=== PATIENT | male | born 1985 | race Caucasian/White ===

== ENCOUNTER 2020-12-15 16:54 | Emergency (ER) | payer BC, MEDICAID, SELFPAY ==
--- NOTE | ~2020-12-15 | XR_ITS ---
EXAMINATION: XR FACIAL BONES CLINICAL INFORMATION: Dog bite COMPARISON: None TECHNIQUE: 5 views of the facial bones were obtained. FINDINGS: No fracture. No focal bone lesion. Normal aeration of the paranasal sinuses. Mandible and TMJ joints are normal. XR/XR facial bones min 3V IMPRESSION: Normal facial bones.
[2020-12-15 17:21] VITALS: BP 122/88; PULSE 76; RESP 18; TEMP 36.8; O2SAT 99; BMI 29.0
[2020-12-15 17:29] VITALS: BP 129/90; PULSE 70; RESP 14; TEMP 36.8; O2SAT 97
--- NOTE | 2020-12-15 17:42 | ED_ITS ---
HPI - Animal Bite General Chief Complaint: Animal Bite Stated Complaint: DOG BITE Time Seen by Provider: 12/15/20 17:30 Source: patient Mode of arrival: ambulatory Limitations: no limitations History of Present Illness HPI narrative: 35-year-old male presenting to the ED with dog bite to his right cheek and right lip that occurred prior to arrival from his own dog. He reports his dog has been very weak and dying over the past week and he had him out in the yd for at least an hour and the dog could not go back up the stairs therefore he tried to help him up the stairs and he might of grabbed him the wrong way or her the dog without attempting to hurt the dog and the dog bit him. He reports the dog was acting his normal self other than being very weak over the past week. He does not believe his dog had rabies and he believes that his dog was up-to-date with all immunizations. He reports he is not up-to-date and the tetanus. He reports his dog was put down not because of the bite but because he was very weak over the past week and he was already having this plan/scheduled to put him down. He denies any other symptoms complaints or concerns at this time. MD complaint: animal bite Onset (ago): hour(s) (Prior to arrival) Animal: dog Description of animal: household pet, immunizations UTD and appeared well Mechanism: bite Location: face (Right cheek near the ear and right corner of lip ) Pain description: dull and constant Context: other (He was trying to help him up the steps due to he has been very weak) Associated symptoms: none Treatments prior to arrival: irrigation Related Data Patient tetanus UTD: No Previous Rx's Medication Instructions Recorded amoxicillin 875 mg-potassium 1 tab PO BID 14 Days #28 tab 12/15/20 clavulanate 125 mg tablet (Augmentin) ibuprofen 800 mg tablet 800 mg PO Q8H PRN #14 tab 12/15/20 oxycodone-acetaminophen 5 mg-325 1 tab PO Q6H PRN #10 tab 12/15/20 mg tablet (Percocet) Allergies Allergy/AdvReac Type Severity Reaction Status Date / Time No Known Allergies Allergy Verified 12/15/20 17:21 Review of Systems Review of Systems: Constitutional : No Fever, No Chills, Cardiovascular : No Chest Pain, No SOB Respiratory : No Dyspnea Gastrointestinal : No abdominal pain Musculoskeletal : No Joint Swelling Skin : positive skin laceration, No Foreign bodies, No rash, No surrounding erythema Neuro : No Weakness, No Numbness/tingling Psych : No SI/HI/thoughts of self injury Yes all other systems are reviewed and are negative [facility] Past Medical History Attestation statement: The following information was validated with the patient. Medical History Patient denies having any allergies Patient denies medical problems Social History Social History Alcohol intake: never Smoked in Last 30 Days: No Use of substances other than those prescribed or required for medical reasons: No Advance Directives: No Advance Directives Information Provided: No Physical Exam Vital Signs: Vital Signs: Last Vital Signs Temp 98.3 F 12/15/20 17:29 Pulse 70 12/15/20 17:29 Resp 14 12/15/20 17:29 BP 129/90 H 12/15/20 17:29 Pulse Ox 97 12/15/20 17:29 Body Mass Index 29.0 vital signs have been reviewed as normal and appeared to be correct. Blood pressure normal Heart rate normal. Respiration rate normal. Temperature normal. Oxygen saturation normal. Appearance: Alert. Oriented X3. No acute distress. Head: Normal external exam. Normocephalic. Atraumatic. Eyes: PERRLA. EOMI. Conjunctiva and sclera normal. Eyelids normal. ENT: Pharynx normal. Uvula midline. Moist mucous membranes. Neck: Normal inspection. Neck supple. FROM. CVS: Normal heart rate and rhythm. Respiratory: No respiratory distress. Painless inspiration. Skin: Skin warm and dry. Normal skin color. Normal skin turgor. To the right cheek patient has 3 intermediate 1 cm lacerations noted no active bleeding or foreign bodies noted. To the right oral commissure/lip patient has the 0.5 intermediate circular laceration no active bleeding or foreign bodies noted. No additional rashes/lesions/lacerations noted. Extremities: Extremities exhibit normal range of motion. Extremities nontender. Neuro: Oriented X 3. No motor deficit. No sensory deficit. Reflexes normal. Normal steady gait. No focal neuro deficits noted. Course Course Course Narrative: 35-year-old male presenting to the ED with dog bite to his right cheek and right lip that occurred prior to arrival from his own dog. He reports his dog has been very weak and dying over the past week and he had him out in the yd for at least an hour and the dog could not go back up the stairs therefore he tried to help him up the stairs and he might of grabbed him the wrong way or her the dog without attempting to hurt the dog and the dog bit him. He reports the dog was acting his normal self other than being very weak over the past week. He does not believe his dog had rabies and he believes that his dog was up-to-date with all immunizations. He reports he is not up-to-date and the tetanus. He reports his dog was put down not because of the bite but because he was very weak over the past week and he was already having this plan/scheduled to put him down. He denies any other symptoms complaints or concerns at this time. On exam patient has 2 intermediate laceration to the right cheek and 1 interm ediate laceration to the right oral commissure no foreign bodies or active bleeding noted. Patient not up-to-date on tetanus therefore ordered at this time. Will also order Augmentin and start him on Augmentin b.i.d. for 14 days. Patient is now status post laceration repair with 3 loose sutures placed to the bigger wound to the right outer cheek, then 1 suture loose suture to the middle laceration then 2 sutures to the 3rd laceration and 1 suture to the lip all loose and patient tolerated procedure well no complications. Will DC home with symptomatic treatment instructions return if any new or worsening symptoms follow-up with primary care provider. Along with instructions to return in 10 days for suture removal. Patient understands agrees with this plan. MDM - Animal Bite Medical Records Attestation: I reviewed the patient's medical records. Imaging Data Facial bone x-rays: Attestation: I personally reviewed and interpreted this imaging study as follows: Radiologist's impression: FINDINGS: No fracture. No focal bone lesion. Normal aeration of the paranasal sinuses. Mandible and TMJ joints are normal. XR/XR facial bones min 3V IMPRESSION: Normal facial bones.? Procedures Laceration Laceration 1: Site: face Side (If applicable): right Size (cm): 1 Description: linear Depth: simple, single layer Local Anesthetic: lidocaine 1% Amount of anesthesia used (mL): 3 Pre-repair: wound explored Skin layer closed with: other (Prolene) Size (cm): 5-0 Number of sutures: 3 Technique: simple, interrupted Laceration 2: Site: face Side (If applicable): right Size (cm): 1 Description: linear Depth: simple, single layer Local Anesthetic: lidocaine 1% Amount of anesthesia used (mL): 3 Pre-repair: wound explored, irrigated extensively and deep structures intact Skin layer closed with: other (Prolene) Size (cm): 5-0 Number of sutures: 1 Technique: simple, interrupted Laceration 3: Site: scalp and face Side (If applicable): right Size (cm): 1 Description: linear Depth: simple, single layer Local Anesthetic: lidocaine 1% Amount of anesthesia used (mL): 3 Pre-repair: wound explored, irrigated extensively and deep structures intact Skin layer closed with: other (Prolene) Size (cm): 5-0 Number of sutures: 2 Technique: simple, interrupted Laceration 4: Site: lip Side (If applicable): right Size (cm): 0.5 Description: involves lid margin and other (Circular) Depth: simple, single layer Local Anesthetic: lidocaine 1% Amount of anesthesia used (mL): 1 Pre-repair: wound explored, irrigated extensively and deep structures intact Skin layer closed with: other (Prolene) Size (cm): 5-0 Number of sutures: 1 Technique: simple, interrupted Discharge Plan Discharge Clinical Impression: Dog bite, Face lacerations, Laceration of lip Patient Disposition: Home, Self-Care Instructions: Animal Bite (ED), Facial Laceration (ED) Additional Instructions: You should return in 5 days for suture removal. Return sooner if any new or worsening symptoms. Prescriptions: New amoxicillin-pot clavulanate [Augmentin] 875-125 mg tablet 1 tab PO BID 14 Days Qty: 28 RF: 0 ibuprofen 800 mg tablet 800 mg PO Q8H PRN (Reason: pain) Qty: 14 RF: 0 oxycodone-acetaminophen [Percocet] 5-325 mg tablet 1 tab PO Q6H PRN (Reason: pain) Qty: 10 RF: 0 Referrals: Adeline Holloway PA [Emergency Midlevel Provider] - 5 days (for suture removal) Stand Alone Forms: Work/School Release Print Language: Guyanese
[2020-12-15] MEDS: Amoxicillin/Potassium Clav 875 MG TABLET PO (17:44)
[2020-12-15] MEDS: Lidocaine HCl 1 % MPF 5 ML VIAL SUBCUT (17:44)
[2020-12-15] MEDS: Ondansetron ODT 4 MG TAB.RAPDIS TRANSLINGU (17:44)
[2020-12-15] MEDS: Diphth,Pertus(ACell),Tet Adult 0.5 ML SYRINGE IM (19:03)
== END 2020-12-15 19:21 | disposition home or self-care (01) ==
PROVIDERS: Emergency Provider Emergency Medicine
DX: S01.451A Open bite of right cheek and temporomandibular area, initial encounter (principal); S01.551A Open bite of lip, initial encounter; W54.0XXA Bitten by dog, initial encounter; Y93.9 Activity, unspecified; Y92.009 Unspecified place in unspecified non-institutional (private) residence as the place of occurrence of the external cause; Y99.9 Unspecified external cause status
CPT/HCPCS: 12013; 70150; 90471; 90715; 99283; 99284

== ENCOUNTER 2020-12-20 17:37 | Emergency (ER) | payer BC, MEDICAID, SELFPAY ==
[2020-12-20 17:48] VITALS: BP 147/77; PULSE 67; RESP 16; TEMP 36; O2SAT 97; BMI 29.0
--- NOTE | 2020-12-20 18:49 | ED.RECABL ---
HPI - Recheck/Abnormal Lab/Rx General Chief Complaint: Wound/Laceration Stated Complaint: remove sutures Time Seen by Provider: 12/20/20 18:41 Source: patient Mode of arrival: ambulatory Limitations: no limitations History of Present Illness complaint: suture/staple removal Initial visit (ago): day(s) (Five days) Initial visit for: laceration and animal bite Returns today for: staple/stitch removal Symptoms since prior visit: no new symptoms Context: planned re-check Associated symptoms: none Treatments prior to arrival: other (Currently on Augmentin/oxycodone and Motrin taking as prescribed) Related Data Previous Rx's Medication Instructions Recorded amoxicillin 875 mg-potassium 1 tab PO BID 14 Days #28 tab 12/15/20 clavulanate 125 mg tablet (Augmentin) ibuprofen 800 mg tablet 800 mg PO Q8H PRN #14 tab 12/15/20 oxycodone-acetaminophen 5 mg-325 1 tab PO Q6H PRN #10 tab 12/15/20 mg tablet (Percocet) Allergies Allergy/AdvReac Type Severity Reaction Status Date / Time No Known Allergies Allergy Verified 12/15/20 17:21 Review of Systems Review of Systems: Constitutional : No Fever, No Chills, Cardiovascular : No Chest Pain, No SOB Respiratory : No Dyspnea Gastrointestinal : No abdominal pain Musculoskeletal : No Joint Swelling Skin : positive skin laceration taht is healing, no new skin lacerations, No Foreign bodies, No rash, No surrounding erythema Neuro : No Weakness, No Numbness/tingling Psych : No SI/HI/thoughts of self injury Yes all other systems are reviewed and are negative [facility] Past Medical History Attestation statement: The following information was validated with the patient. Medical History Patient denies having any allergies Patient denies medical problems Social History Social History Alcohol intake: never Advance Directives: No Advance Directives Information Provided: Yes Physical Exam Vital Signs: Vital Signs: Last Vital Signs Temp 96.8 F 12/20/20 17:48 Pulse 67 12/20/20 17:48 Resp 16 12/20/20 17:48 BP 147/77 H 12/20/20 17:48 Pulse Ox 97 12/20/20 17:48 Body Mass Index 29.0 vital signs have been reviewed as normal and appeared to be correct. Blood pressure hypertensive 147/77. Heart rate normal. Respiration rate normal. Temperature normal. Oxygen saturation normal. Appearance: Alert. Oriented X3. No acute distress. Head: Normal external exam. Normocephalic. Atraumatic. Eyes: PERRLA. EOMI. Conjunctiva and sclera normal. Eyelids normal. ENT: Pharynx normal. Uvula midline. Moist mucous membranes. Neck: Normal inspection. Neck supple. FROM. CVS: Normal heart rate and rhythm. Respiratory: No respiratory distress. Painless inspiration. Skin: Skin warm and dry. Normal skin color. Normal skin turgor. pt with 4 well healing lacerations with overlying scab no purulent drainage or streaking or signs of infection or surrounding erythema noted to the right cheek and 1 to the right inner lip. No new/additions rashes/lesions/lacerations noted. Extremities: Extremities exhibit normal range of motion. Extremities nontender. Neuro: Oriented X 3. No motor deficit. No sensory deficit. Reflexes normal. Normal steady gait. No focal neuro deficits noted. Course Course Course Narrative: Patient now status post suture removal. Patient tolerated procedure well. A total of 7 sutures were removed. No complications. No signs of infection. I explained to the patient to continue taking his previously prescribed medications as previously prescribed and to return if any new or worsening symptoms to follow up with primary care provider. Patient understands agrees with this plan. MDM - Recheck/Abnormal Lab/Rx Medical Records Attestation: I reviewed the patient's medical records. Discharge Plan Discharge Clinical Impression: Visit for suture removal Patient Disposition: Home, Self-Care Instructions: Stitches Removal (ED) Prescriptions: No Action amoxicillin-pot clavulanate [Augmentin] 875-125 mg tablet 1 tab PO BID 14 Days Qty: 28 RF: 0 ibuprofen 800 mg tablet 800 mg PO Q8H PRN (Reason: pain) Qty: 14 RF: 0 oxycodone-acetaminophen [Percocet] 5-325 mg tablet 1 tab PO Q6H PRN (Reason: pain) Qty: 10 RF: 0 Referrals: Physician,Nonstaff [Primary Care Provider] - 2 days (your pcp) Print Language: Greenlandic
== END 2020-12-20 19:14 | disposition home or self-care (01) ==
PROVIDERS: Emergency Provider Internal Medicine
DX: Z48.02 Encounter for removal of sutures (principal); Z79.899 Other long term (current) drug therapy
CPT/HCPCS: 99283

== ENCOUNTER 2022-09-07 08:49 | Outpatient (AMB) | payer OTHER, SELFPAY ==
--- NOTE | 2022-09-07 08:51 | MHC.OFFWIV ---
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 Patient is reporting of low back pain. He had similar issues in April. It is presumed that it is kidney stones. Patient has had no diagnostic test done. No difficulty urinating. Patient has no primary care provider. [facility] Medical History Patient denies having any allergies Patient denies medical problems Social History Alcohol intake: never Patient Tobacco Use Status: Current everyday Tobacco user Physical Exam Vital Signs: Last Vital Signs Pulse 70 09/07/22 08:53 BP 124/78 09/07/22 08:53 Pulse Ox 97 09/07/22 08:53 Oxygen Delivery Method Room Air 09/07/22 08:53 Const General: cooperative and healthy appearing Nutritional Appearance: well nourished Orientation/consciousness: patient oriented x3 Limitations: no limitations HEENT Head: Yes normal to inspection Eyes General: appearance normal, both eyes and all related structures Neck Neck: Yes normal visual inspection Chest Chest palpation & inspection: normal palpation of entire chest wall Resp Effort & Inspection: normal respiratory effort Neuro General: patient oriented x3 Results AMB Urinalysis, Automated UA Leukoctes 0 Zeynep/uL Last Edit by BRYAN Arboleda on 09/07/22 10:26 UA Nitrite Negative Last Edit by BRYAN Arboleda on 09/07/22 10:26 UA Urobilinogen 0 mg/dL Last Edit by BRYAN Arboleda on 09/07/22 10:26 UA Protein 0 mg/dL Last Edit by BRYAN Arboleda on 09/07/22 10:26 UA pH 6.0 Last Edit by Edmond Dubois [facility] on 09/07/22 10:26 UA Blood 80 Romulo/uL Last Edit by Edmond Dubois [facility] on 09/07/22 10:26 UA Specific [place] 1.010 Last Edit by Edmond Dubois [facility] on 09/07/22 10:26 UA Ketone Negative Last Edit by [facility]mond Dubois [facility] on 09/07/22 10:26 UA Bilirubin 0 mg/dL Last Edit by Edmond Dubois [facility] on 09/07/22 10:26 UA Glucose 0 mg/dL Last Edit [facility] on 09/07/22 10:26 Results Reviewed Results Reviewed: Laboratory Last Values Urine pH (Auto) 6.0 09/07/22 10:25 Specific [place] (Auto) 1.010 09/07/22 10:25 Urine Protein (Auto) 0 mg/dL 09/07/22 10:25 Glucose (UA)(Auto) 0 mg/dL 09/07/22 10:25 Urine Ketones (Auto) Negative 09/07/22 10:25 Urine Blood (Auto) 80 Romulo/uL 09/07/22 10:25 Urine Nitrite (Auto) Negative 09/07/22 10:25 Urine Bilirubin (Auto) 0 mg/dL 09/07/22 10:25 Urine Urobilinogen (Auto) 0 mg/dL 09/07/22 10:25 Leukocyte Esterase (Auto) 0 Zeynep/uL 09/07/22 10:25 Assessment & Plan Assessment & Plan (1) Low back pain: Code(s): M54.50 - Low back pain, unspecified Plan: Patient was advised to increase fluid intake. Anti-inflammatory called in. He was given a name of a primary care provider in [place] and advised to establish care there. Orders: Orders AMB Urinalysis Automated Today Z13.9 - Encounter for screening, unspecified Medications: New meloxicam 15 mg PO DAILY 14 tabs 0RF Coding Level of Care Code Est Pt Level 3 (94053) Diagnoses Low back pain M54.50
[2022-09-07 08:53] VITALS: BP 124/78; PULSE 70; O2SAT 97
== END 2022-09-07 10:45 | disposition home or self-care (01) ==
PROVIDERS: Visit Provider Internal Medicine
DX: M54.50 Low back pain, unspecified (principal); Z13.9 Encounter for screening, unspecified
CPT/HCPCS: 81003; 99203

== ENCOUNTER 2022-09-16 11:03 | Outpatient (AMB) | payer OTHER, SELFPAY ==
--- NOTE | 2022-09-16 11:06 | A.OFFPC_ITS ---
Vital Signs 09/16/22 11:07 Height 5 ft 6 in Weight 166 lb 4 oz BMI 26.8 BP 124/76 Blood Pressure Location Lt brachial Position Sitting Respiration 12 Pulse 81 Pulse Source Pulse Oximeter Temp 98.6 F Temp Source Temporal Artery Scan Pulse Oximetry (%) 98 Oxygen Delivery Method Room Air Intake Visit Reasons: New patient-Kidney stones Intake Note: Patient states that the pain started 3 weeks ago and would be on and off through out the 3 weeks. Patient states its been an ongoing issue. Patient would like to know what is causing the stones. Patient states that he 15 years ago he was told that he had fluid around his gall bladder. 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 He notes that he was last seen by a PCP 10 years ago. He reports h/o kidney stones. He was evaluated and treated for kidney stones at [facility] ED earlier this year. He spontaneously passed the stone. He notes he has had kidney stones 4 times in the past. He was evaluated at the [place] walk-in clinic on 09/07/2022 for low back pain which he attributes to kidney stones. UA was positive for RBC. He was prescribed meloxicam, encouraged to increase fluids, and advised to establish with a PCP. He notes that his symptoms have completely resolved. He denies back pain since last week . He denies acute symptoms today. He notes that he is sexually active, in a polygamous relationship, and practices safe sex. [facility] Medical History (Updated 09/16/22 @ 11:53 by Javad Escudero CNP) Kidney stones Patient denies having any allergies Surgical History No pertinent past surgical history Social History (Updated 09/16/22 @ 11:20 by Mago Cramer MA) Household Members: Family Caregiver staying overnight: No Housing: House Are you a primary restorative care technician to a significant other at home: No Do you presently have visiting nurse or other home services: No 75 years or older and lives alone: No Alcohol intake: never Patient Tobacco Use Status: Current everyday Tobacco user Cigarettes Per Day: 8 Years Smoked: 24 e-Cigarette/Vaping Use: Currently Using Agree to transfusion: Yes service: No Current occupational status: employed 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 1. Little interest or pleasure in doing things: not at all 2. Feeling down, depressed, or hopeless: not at all 3. Trouble falling or staying asleep, or sleeping too much: not at all 4. Feeling tired or having little energy: not at all 5. Poor appetite or overeating: not at all 6. Feeling bad about yourself - or that you are a failure or have let yourself or your family down: not at all 7. Trouble concentrating on things, such as reading the newspaper or watching television: not at all 8. Moving or speaking so slowly that other people could have noticed. Or the opposite - being so fidgety or restless that you have been moving around a lot more than usual: not at all 9. Thoughts that you would be better off or of hurting yourself in some way: not at all Total score: 0 Depression Screening Interpretation: Negative Source: Developed by Drs. Mohamud Felder, Kristi Mckoy, Moises Viramontes and colleagues, with an educational ania from [employer]. Thrive Questionnaire Date Thrive assessed: 09/16/22 I am a: Patient What is your living situation today?: I have a steady place to live Within the past 12 months, did the food you bought not last and you didn't have the money to get more?: Never true Within the past 12 months, did you worry whether your food would run out before you got money to buy more?: Never true Do you have trouble paying for medicines?: No Do you have trouble getting transportation to medical appointments?: No Do you have trouble paying your heating and electricity bill?: No Do you have trouble taking care of your child, family member or friend?: No Do you have trouble with day-to-day activities such as bathing, preparing meals, shopping, managing finances, etc.?: No Are you currently unemployed and looking for a job?: No Are you interested in more education?: No Please select the resources that you would like help with: None Currently or been in a relationship where the following occur: no concerns reported AUDIT C Alcohol Use Questionnaire (AUDIT-C) 1. How often do you have a drink containing alcohol?: Never 3. How often do you have six or more drinks on one occasion?: Never Total Score: 0 HALEY-7 AMB Questionnaire HALEY-7 Date HALEY - 7 assessed: 09/16/22 Feeling nervous, anxious, or on edge: 0 = Not at all Not being able to stop or control worryin = Not at all Worrying too much about different things: 0 = Not at all Trouble relaxin = Not at all Being so restless that it is hard to sit still: 0 = Not at all Becoming easily annoyed or irritable: 0 = Not at all Feeling afraid as if something awful might happen: 0 = Not at all Total HALEY-7 score (0-4 normal; 5-9 mild; 10-14 moderate; 15-21 severe): 0 Source: Developed by Drs. Mohamud Felder, Kristi Mckoy, Moises Viramontes and colleagues, with an educational ania from [employer]. Review of Systems Const Details: Denies chills, Denies fatigue, Denies fever(s), Denies headache(s) and Denies weakness HEENT Denies change in vision, Denies dizziness, Denies headache(s), Denies hearing loss, Denies nasal congestion, Denies sinus pain, Denies sinus pressure and Denies sore throat Card Denies chest pain, Denies lightheadedness, Denies dyspnea and Denies other (palpitations) Resp Denies cough, Denies dyspnea and Denies wheezing GI Denies abdominal pain, Denies melena, Denies hematochezia, Denies change in bowel habits, Denies dyspepsia and Denies nausea Denies hematuria and Denies dysuria Musc Denies abnormal gait, Denies myalgias, Denies arthralgias, Denies numbness and Denies tingling Skin/Breast Denies rash, Denies unusual bruising and Denies wounds Neuro Denies abnormal gait, Denies dizziness, Denies headache(s), Denies memory loss, Denies numbness, Denies Sensory deficit (Neuro), Denies tingling and Denies weakness Psych Denies anxiety, Denies depression and Denies memory loss Endo Denies cold intolerance, Denies fatigue, Denies heat intolerance, Denies polydipsia and Denies polyuria Myles/Lymph Denies easy bleeding and Denies easy bruising Aller/Immun Denies wheezing Physical exam (Primary Care) Vital Signs: Last Vital Signs Temp 98.6 F 09/16/22 11:07 Pulse 81 09/16/22 11:07 Resp 12 09/16/22 11:07 BP 124/76 09/16/22 11:07 Pulse Ox 98 09/16/22 11:07 Oxygen Delivery Method Room Air 09/16/22 11:07 BMI result Body Mass Index 26.8 Tobacco/Smoking Status: Tobacco use Status Tobacco use date assessed 09/16/22 09/16/22 11:23 Patient Tobacco Use Status Current everyday Tobacco 09/16/22 11:23 e-Cigarette/Vaping Use Currently Using 09/16/22 11:23 PHQ-9: PHQ-9 Score PHQ-9: Total score 0 09/16/22 11:23 Depression Screening Interpretation: Negative Thrive Assessment: Date of Thrive Assessment Date Thrive assessed 09/16/22 09/16/22 11:23 Currently or been in a relationship where the following occur: no concerns reported Const Other: General: no acute distress, well developed, alert and awake Nutritional Appearance: well nourished Orientation/consciousness: patient oriented x3 HENMT Head: Yes normocephalic and Yes atraumatic Ears: hearing grossly normal bilaterally and TM's normal bilaterally General nose exam: Normal external nose present and Normal nares present Mouth: Normal oral and palatal mucosa present and moist mucous membranes Teeth and gingiva: dentition normal Throat: Yes oropharynx normal Eyes Pupils: Equal, round and reactive pupils present and Pupil accommodation reflex normal EOM: EOMs intact bilaterally Neck Neck: Yes normal visual inspection, Yes no lymphadenopathy and Yes trachea midline Thyroid: Thyroid normal Carotids: no bruits Lymphatic: no lymphadenopathy noted Chest Chest palpation & inspection: normal inspection of the chest Resp Effort & Inspection: normal respiratory effort Auscultation: clear to auscultation bilaterally Cardio Rate: regular rate Rhythm: regular rhythm Heart sounds: S1 normal heart sound present, S2 normal heart sound present, no gallops, no murmurs and no rubs Bruits: no abdominal aortic bruits and no carotid bruits GI Palpation (GI): No Abdominal aortic bruit present, Soft to palpation, nontender, No hepatosplenomegaly present and No Rebound tenderness present Auscultation: normal bowel sounds General: Yes no CVA tenderness Back/Spine/Pelvis Back: no CVA tenderness Cervical Spine: cervical ROM normal and No Cervical spine tenderness Thoracic/Lumbar Spine: thoraco-lumbar ROM normal, No pain with thoraco-lumbar ROM, No thoracic spinal tenderness and No lumbar spinal tenderness Skin General: warm and dry. Normal skin color. Normal skin turgor Lesions: no lesions Rashes: no rashes Trauma: no lacerations or abrasions Wounds: no wounds Nails: normal Neuro General: patient oriented x3, gait normal and CN's II-XI intact bilaterally Cranial nerves: Yes Equal, round and reactive pupils present Cognition (Neuro): normal cognition Gait exam (Neuro): Normal gait present Motor exam (neuro): 5/5 motor strength present throughout Sensory Exam: No Sensory deficit (Neuro) Deep tendon reflexes (DTR's): Right patellar reflex intensity grade: 2+ and Left patellar reflex intensity grade: 2+ Extrem General: Yes normal to inspection, No edema and No calf tenderness Psych Appearance: grossly normal Affect: normal affect Attitude: cooperative Thought process: Normal thought process present Assessment and Plan Assessment & Plan (1) Low back pain: Code(s): M54.50 - Low back pain, unspecified Plan: Resolved Adequate hydration encouraged Follow-up with symptoms or concerns Verbalized understanding and agreed with plan. (2) Normal physical examination, routine: Code(s): Z00.00 - Encounter for general adult medical examination without abnormal findings Plan: No significant physical restrictions or limitations noted Encouraged to get fasting blood work done. Will review results and make changes to his care plan if warranted Declines STD screening Advised to schedule his next physical for a year from today Verbalized understanding and agreed with the plan. (3) Laboratory tests ordered as part of a complete physical exam (CPE): Code(s): Z00.00 - Encounter for general adult medical examination without abnormal findings Plan: Fasting labs ordered as part of a complete physical exam. Advised to fast for at least 10 hours before getting labs drawn. May drink water Verbalized understanding and agreed with treatment plan. Orders: Orders Comprehensive [place]. Panel Fast Today Z00.00 - Encounter for general adult medical examination without abnormal findings Lipid Panel Today Z00.00 - Encounter for general adult medical examination without abnormal findings TSH reflex Free T4 Today Z00.00 - Encounter for general adult medical examination without abnormal findings Complete Blood Count Auto Diff Today Z00.00 - Encounter for general adult me dical examination without abnormal findings UA CC w/rflx Micro + Cult Today Z00.00 - Encounter for general adult medical examination without abnormal findings Coding Level of Care Code New Pt Prev Care 18-39yr([id number] Diagnoses Low back pain M54.50 Normal physical examination, routine Z00.00 Laboratory tests ordered as part of a complete physical exam (CPE) Z00.00
[2022-09-16 11:07] VITALS: BP 124/76; PULSE 81; RESP 12; TEMP 37; O2SAT 98; BMI 26.8
== END 2022-09-16 11:56 | disposition home or self-care (01) ==
PROVIDERS: PCP Nurse Practitioner Family; Visit Provider Nurse Practitioner Family
DX: M54.50 Low back pain, unspecified (principal); Z00.00 Encounter for general adult medical examination without abnormal findings
CPT/HCPCS: 99385

== ENCOUNTER 2023-02-04 13:37 | Outpatient (AMB) | payer OTHER, SELFPAY ==
[2023-02-04 13:41] VITALS: BP 126/74; PULSE 68; RESP 13; TEMP 36.6; O2SAT 99; BMI 27.0
--- NOTE | 2023-02-04 13:41 | MHC.PC.OV ---
Vital Signs 02/04/23 13:41 Height 5 ft 6 in Weight 167 lb 8 oz BMI 27.0 BP 126/74 Blood Pressure Location Rt brachial Position Sitting Respiration 13 Pulse 68 Pulse Source Pulse Oximeter Temp 97.9 F Temp Source Temporal Artery Scan Pulse Oximetry (%) 99 Oxygen Delivery Method Room Air Intake Visit Reasons: sore throat, congestion Intake Note: Patient states that hes been feeling like this for about a week. Patient states that hes been dealing with cough and alot sneezing. Patient states that his Girlfriend was diagnosed with upper respitory infection so he wanted to come in and see if he had the same thing. Patient states hes been experiencing sinus pressure as well. 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 Accompanied by: Self / Same As Patient Allergies No Known Allergies Allergy (Verified 02/04/23 13:59) Tobacco use date assessed: 09/16/22 Dental Screening Dental Screen Date: 02/04/23 Did you have a dental visit in the last 12 months?: Yes Did you have a dental problem in the last 6 months where you did not have access to dental care?: No Was dental information given to patient?: Patient has dentist HPI HPI Comments History of Present Illness Details 37-year-old male presents with complaints of sore throat, nasal congestion, intermittent non productive cough, sneezing, post nasal drip, headache, and sinus pressure. He endorses associated mild body aches. His symptoms have been ongoing for about a week. Reports positive sick contact. He notes that his girlfriend was recently diagnosed with upper respiratory a infection. He notes that he has been taking cough drops, Excedrin, and hydrating well with water. He has not done any viral testing. No fever, chills, fatigue, or weakness. [facility] Medical History (Updated 02/04/23 @ 14:12 by Javad Escudero CNP) Collar bone fracture Kidney stones Patient denies having any allergies Surgical History No pertinent past surgical history Social History Household Members: Family Housing: House Are you a primary respite care provider to a significant other at home: No Do you presently have visiting nurse or other home services: No Alcohol intake: never Patient Tobacco Use Status: Former Tobacco user Cigarettes Per Day: 8 Years Smoked: 24 e-Cigarette/Vaping Use: Currently Using Agree to transfusion: Yes service: No Current occupational status: employed 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 Mohamud Felder, Kristi Mckoy, Moises Viramontes and colleagues, with an educational ania from [employer]. Review of Systems Const Details: Const Denies chills, Denies fatigue, Denies fever(s), Denies headache(s) and Denies weakness ENT Reports as per HPI Card Denies chest pain, Denies lightheadedness, Denies dyspnea and Denies other (Palpitations) Resp Denies cough, Denies dyspnea, Denies wheezing and Denies other ( shortness of breath) GI Denies abdominal pain, Denies melena, Denies hematochezia, Denies change in bowel habits, Denies dyspepsia and Denies nausea Denies hematuria and Denies dysuria Musc Denies abnormal gait, Denies myalgias, Denies arthralgias, Denies numbness and Denies tingling Skin/Breast Denies rash, Denies unusual bruising and Denies wounds Neuro Denies abnormal gait, Denies dizziness, Denies headache(s), Denies memory loss, Denies numbness, Denies Sensory deficit (Neuro), Denies tingling and Denies weakness Psych Denies anxiety, Denies depression, Denies memory loss Endo Denies cold intolerance, Denies fatigue, Denies heat intolerance, Denies polydipsia and Denies polyuria Aller/Immun Denies wheezing Physical exam (Primary Care) Vital Signs: Last Vital Signs Temp 97.9 F 02/04/23 13:41 Pulse 68 02/04/23 13:41 Resp 13 02/04/23 13:41 BP 126/74 02/04/23 13:41 Pulse Ox 99 02/04/23 13:41 Oxygen Delivery Method Room Air 02/04/23 13:41 BMI result Body Mass Index 27.0 Tobacco/Smoking Status: Tobacco use Status Tobacco use date assessed 09/16/22 02/04/23 13:46 Patient Tobacco Use Status Former Tobacco user 02/04/23 13:49 e-Cigarette/Vaping Use Currently Using 02/04/23 13:46 Thrive Assessment: Date of Thrive Assessment Date Thrive assessed 09/16/22 02/04/23 13:46 Const Other: General: no acute distress and well developed Nutritional Appearance: well nourished Orientation/consciousness: patient oriented x3 HENMT Head is normocephalic Bilateral ear canal and TM are normal Nasal turbinates and oropharynx are pink and moist Sinuses are nontender with palpation No auricular or cervical lymphadenopathy Eyes General: appearance normal, both eyes and all related structures Pupils: Equal, round and reactive pupils present EOM: EOMs intact bilaterally Resp Effort & Inspection: normal respiratory effort Auscultation: clear to auscultation bilaterally Cardio Rate: regular rate Rhythm: regular rhythm Heart sounds: S1 normal heart sound present, S2 normal heart sound present, no gallops, no murmurs and no rubs GI Palpation (GI): No Abdominal aortic bruit present, Soft to palpation, nontender, No hepatosplenomegaly present and No Rebound tenderness present Auscultation: normal bowel sounds General: Yes no CVA tenderness Back/Spine/Pelvis Back: no CVA tenderness Cervical Spine: cervical ROM normal and No Cervical spine tenderness Thoracic/Lumbar Spine: thoraco-lumbar ROM normal, No pain with thoraco-lumbar ROM, No thoracic spinal tenderness and No lumbar spinal tenderness Extrem General: Yes normal to inspection, No edema and No calf tenderness Skin General: warm and dry. Normal skin color. Normal skin turgor Neuro General: patient oriented x3, gait normal and no focal neuro deficit Cranial nerves: Yes Equal, round and reactive pupils present Cognition (Neuro): normal cognition Gait exam (Neuro): Normal gait present Sensory Exam: No Sensory deficit (Neuro) Psych Appearance: grossly normal Affect: normal affect Attitude: cooperative Thought process: Normal thought process present Assessment and Plan Assessment & Plan (1) Viral upper respiratory illness: Code(s): J06.9 - Acute upper respiratory infection, unspecified Plan: Likely viral illness though possibly allergies. No exam evidence of bacterial infection Viral illness There is no antibiotic medication for viruses.? They must run their course.? Most average 5-7 days but 7-10 days is not uncommon and up to 14 days is still possible.? A cough is often the last symptom to resolve and this can last for weeks in some cases. Rest Hydrate well -? Drink plenty of fluids.? Especially water. Tylenol or ibuprofen for muscle aches, headache, fever/discomfort He may take an antihistamine like Zyrtec daily Amoxicillin as prescribed to prevent sinusitis Cannot rule out COVID-19/RSV/Flu infection Nasal swab acquired and will be sent to the lab Return for new or worsening symptoms Verbalized understanding and agreed with treatment plan. Orders: Orders SARS-CoV2/FLU/RSV Today J06.9 - Acute upper respiratory infection, unspecified Medications: New amoxicillin 875 mg PO BID 14 tabs 0RF 7 days Coding Level of Care Code Est Pt Level 2 (60365) Diagnoses Viral upper respiratory illness J06.9
== END 2023-02-04 14:12 | disposition home or self-care (01) ==
PROVIDERS: PCP Nurse Practitioner Family; Visit Provider Nurse Practitioner Family
DX: J06.9 Acute upper respiratory infection, unspecified (principal)
CPT/HCPCS: 99212

== ENCOUNTER 2023-02-04 14:13 | Outpatient (REF) | payer OTHER, SELFPAY ==
[2023-02-05 14:00] LABS: Influenza A PCR NEGATIVE (Negative); Influenza B PCR NEGATIVE (Negative); Resp Syncy Virus RNA Qual PCR POSITIVE (Negative); SARS COV2 PCR INHOUSE NEGATIVE (Negative)
== END 2023-02-04 14:14 | disposition home or self-care (01) ==
LOC: HO.LAB 14:13
PROVIDERS: Visit Provider Nurse Practitioner Family
DX: Z11.52 Encounter for screening for COVID-19 (principal); J06.9 Acute upper respiratory infection, unspecified
CPT/HCPCS: 0241U

== ENCOUNTER 2024-11-24 12:28 | Outpatient (AMB) | payer BC, SELFPAY ==
--- NOTE | 2024-11-24 12:31 | A.OFFPC_ITS ---
Vital Signs 11/24/24 12:52 Height 5 ft 6 in Weight 166 lb 6 oz BMI 26.9 BP 114/76 Blood Pressure Location Lt brachial Position Sitting Respiration 16 Pulse 74 Pulse Source Pulse Oximeter Temp 98.1 F Temp Source Oral Pulse Oximetry (%) 99 Oxygen Delivery Method Room Air Intake Visit Reasons: Cyst- Upper Back Intake Note: patient here c/o cyst on upper back Senior Application Security Consultant Required: No Allergies No Known Allergies Allergy (Verified 11/24/24 13:07) Medication List - Last Reconciled 11/24/24 by Javad Escudero CNP No Known Home Meds Tobacco use date assessed: 11/24/24 Dental Screening Dental Screen Date: 11/24/24 Did you have a dental visit in the last 12 months?: Yes Did you have a dental problem in the last 6 months where you did not have access to dental care?: No Was dental information given to patient?: Patient has dentist HPI HPI Comments History of Present Illness Details 38-year-old male presents with complaint s of a bump to his back for the past 2 years. He notes that the bump was small but grew in size within the past 1 week. The bump is not painless but is felt. He has a tattoo to large portion of his back, including where the bump is located; however, he notes that the bump started before he had the tattoo. He denies fever, chills, body aches, fatigue, weakness. [facility] Medical History (Updated 11/24/24 @ 13:19 by Javad Escudero CNP) Collar bone fracture Kidney stones Patient denies having any allergies Surgical History No pertinent past surgical history Social History Household Members: Family Caregiver staying overnight: No Housing: House Are you a primary care team assistant to a significant other at home: No Do you presently have visiting nurse or other home services: No 75 years or older and lives alone: No Alcohol intake: never Patient Tobacco Use Status: Former Tobacco user Cigarettes Per Day: 8 Years Smoked: 24 e-Cigarette/Vaping Use: Currently Using Second Hand Smoke Exposure: No Agree to transfusion: Yes service: No Current occupational status: employed 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 1. Little interest or pleasure in doing things: not at all 2. Feeling down, depressed, or hopeless: not at all 3. Trouble falling or staying asleep, or sleeping too much: several days 4. Feeling tired or having little energy: not at all 5. Poor appetite or overeating: not at all 6. Feeling bad about yourself - or that you are a failure or have let yourself or your family down: not at all 7. Trouble concentrating on things, such as reading the newspaper or watching television: not at all 8. Moving or speaking so slowly that other people could have noticed. Or the opposite - being so fidgety or restless that you have been moving around a lot more than usual: not at all 9. Thoughts that you would be better off or of hurting yourself in some way: not at all Total score: 1 Depression Screening Interpretation: Negative Depression Screening Done: Yes Source: Developed by Drs. Mohamud Felder, Kristi Mckoy, Moises Viramontes and colleagues, with an educational ania from [employer]. Thrive Questionnaire Date Thrive assessed: 09/16/22 I am a: Patient What is your living situation today?: I have a steady place to live Within the past 12 months, did the food you bought not last and you didn't have the money to get more?: Never true Within the past 12 months, did you worry whether your food would run out before you got money to buy more?: Never true Do you have trouble paying for medicines?: No Do you have trouble getting transportation to medical appointments?: No Do you have trouble paying your heating and electricity bill?: No Do you have trouble taking care of your child, family member or friend?: No Do you have trouble with day-to-day activities such as bathing, preparing meals, shopping, managing finances, etc.?: No Are you currently unemployed and looking for a job?: No Are you interested in more education?: No Please select the resources that you would like help with: None Currently or been in a relationship where the following occur: No concerns reported THRIVE Score: 0 AUDIT C Alcohol Use Questionnaire (AUDIT-C) 1. How often do you have a drink containing alcohol?: Monthly or less 2. How many drinks containing alcohol do you have on a typical day when you are drinking?: 1 or 2 3. How often do you have six or more drinks on one occasion?: Never Total Score: 1 Score Reviewed/Action Taken: Yes HALEY-7 AMB Questionnaire HALEY-7 Date HALEY - 7 assessed: 09/16/22 Feeling nervous, anxious, or on edge: 0 = Not at all Not being able to stop or control worryin = Not at all Worrying too much about different things: 0 = Not at all Trouble relaxin = Not at all Being so restless that it is hard to sit still: 0 = Not at all Becoming easily annoyed or irritable: 0 = Not at all Feeling afraid as if something awful might happen: 0 = Not at all Total HALEY-7 score (0-4 normal; 5-9 mild; 10-14 moderate; 15-21 severe): 0 Source: Developed by Drs. Mohamud Felder, Kristi Mckoy, Moises Viramontes and colleagues, with an educational ania from [employer]. Review of Systems Const Details: Const Denies chills, Denies fatigue, Denies fever(s), Denies headache(s) and Denies weakness ENT Denies dizziness and Denies headache(s) Card Denies chest pain, Denies lightheadedness, Denies dyspnea and Denies other (Palpitations) Resp Denies cough, Denies dyspnea, Denies wheezing and Denies other ( shortness of breath) GI Denies abdominal pain, Denies melena, Denies hematochezia, Denies change in bowel habits, Denies dyspepsia and Denies nausea Denies hematuria and Denies dysuria Musc Denies abnormal gait, Denies myalgias, Denies arthralgias, Denies numbness and Denies tingling Skin/Breast Reports as per HPI Neuro Denies abnormal gait, Denies dizziness, Denies headache(s), Denies memory loss, Denies numbness, Denies Sensory deficit (Neuro), Denies tingling and Denies weakness Psych Denies anxiety, Denies depression, Denies memory loss Endo Denies cold intolerance, Denies fatigue, Denies heat intolerance, Denies polydipsia and Denies polyuria Aller/Immun Denies wheezing Physical exam (Primary Care) Vital Signs: Last Vital Signs Temp 98.1 F 11/24/24 12:52 Pulse 74 11/24/24 12:52 Resp 16 11/24/24 12:52 BP 114/76 11/24/24 12:52 Pulse Ox 99 11/24/24 12:52 Oxygen Delivery Method Room Air 11/24/24 12:52 BMI result Body Mass Index 26.9 Tobacco/Smoking Status: Tobacco use Status Tobacco use date assessed 11/24/24 11/24/24 12:54 Patient Tobacco Use Status Former Tobacco user 11/24/24 12:33 e-Cigarette/Vaping Use Currently Using 11/24/24 12:33 PHQ-9: PHQ-9 Score PHQ-9: Total score 1 11/24/24 14:57 Depression Screening Interpretation: Negative Thrive Assessment: Date of Thrive Assessment Date Thrive assessed 09/16/22 11/24/24 12:33 Currently or been in a relationship where the following occur: No concerns reported Const Other: General: no acute distress and well developed Nutritional Appearance: well nourished Orientation/consciousness: patient oriented x3 HENMT Head: Yes normocephalic and Yes atraumatic Eyes General: appearance normal, both eyes and all related structures Pupils: Equal, round and reactive pupils present EOM: EOMs intact bilaterally Resp Effort & Inspection: normal respiratory effort Auscultation: clear to auscultation bilaterally Cardio Rate: regular rate Rhythm: regular rhythm Heart sounds: S1 normal heart sound present, S2 normal heart sound present, no gallops, no murmurs and no rubs GI Palpation (GI): No Abdominal aortic bruit present, Soft to palpation, nontender, No hepatosplenomegaly present and No Rebound tenderness present Auscultation: normal bowel sounds General: Yes no CVA tenderness Back/Spine/Pelvis Back: no CVA tenderness Cervical Spine: cervical ROM normal and No Cervical spine tenderness Thoracic/Lumbar Spine: thoraco-lumbar ROM normal, No pain with thoraco-lumbar ROM, No thoracic spinal tenderness and No lumbar spinal tenderness Extrem General: Yes normal to inspection, No edema and No calf tenderness Skin General: warm and dry. Normal skin color. Normal skin turgor Lesions: Large fluctuant abscess, approximately size of a golf ball with mild erythema and multiple yellow heads noted to his upper back adjacent the cervical spine Rashes: no rashes Trauma: no lacerations or abrasions Wounds: no wounds Nails: normal Neuro General: patient oriented x3, gait normal and no focal neuro deficit Cranial nerves: Yes Equal, round and reactive pupils present Cognition (Neuro): normal cognition Gait exam (Neuro): Normal gait present Sensory Exam: No Sensory deficit (Neuro) Psych Appearance: grossly normal Affect: normal affect Attitude: cooperative Thought process: Normal thought process present Coding Level of Care Code Est Pt Level 4 (15089) Diagnoses Abscess of back L02.212 Laboratory tests ordered as part of a complete physical exam (CPE) Z00.00 Assessment & Plan Assessment & Plan (1) Abscess of back: Code(s): L02.212 - Cutaneous abscess of back [any part, except buttock] Category: Medical Plan: 38-year-old male presents with complaints of a bump to his back for the past 2 years. He notes that the bump was small but grew in size within the past 1 week. The bump is not painless but is felt. He has a tattoo to large portion of his back, including where the bump is located; however, he notes that the bump started before he had the tattoo. He denies fever, chills, body aches, fatigue, weakness. Large fluctuant abscess, approximately size of a golf ball with mild erythema and multiple yellow heads noted to his upper back adjacent the cervical spine. Unsure of the etiology of the abscess. Significant amount of purulent and bloody drainage expressed from the abscess. Patient reports pain and discomfort during the procedure. Sample collected from the abscess and will be sent for testing. Bactrim ds twice daily times 10 days for MRSA coverage. May take Tylenol ibuprofen as needed for pain or discomfort. Dry sterile dressing applied. Warm compresses as needed to facilitate drainage of the abscess. May perform DSD twice daily as needed. Instructed on signs and symptoms of infection to monitor and immediately follow- up with PCP, urgent care, or ED. Perform lab work as planned before next visit. Follow-up for an extended physical exam. Verbalized understanding and agreed with the plan. (2) Laboratory tests ordered as part of a complete physical exam (CPE): Code(s): Z00.00 - Encounter for general adult medical examination without abnormal findings Category: Medical Plan: Fasting labs ordered as part of a complete physical exam. Advised to fast for at least 10 hours before getting labs drawn. May drink water Verbalized understanding and agreed with treatment plan. Orders: Orders Complete Blood Count Auto Diff Today Z00.00 - Encounter for general adult medical examination without abnormal findings Microalbumin, Random (w Creat) Today Z00.00 - Encounter for general adult medical examination without abnormal findings TSH reflex Free T4 Today Z00.00 - Encounter for general adult medical examination without abnormal findings Comprehensive [place]. Panel Fast Today Z00.00 - Encounter for general adult medical examination without abnormal findings Lipid Panel Today Z00.00 - Encounter for general adult medical examination without abnormal findings UA CC w/rflx Micro + Cult Today Z00.00 - Encounter for general adult medical examination without abnormal findings Vitamin D 25-OH Total Today Z00.00 - Encounter for general adult medical examination without abnormal findings Routine Culture w Gram Stain Today L02.212 - Cutaneous abscess of back [any part, except buttock and flank] Medications: New sulfamethoxazole-trimethoprim 800-160 mg (Bactrim DS) 1 tab PO Q12H 20 tabs 0RF 10 days
[2024-11-24 12:52] VITALS: BP 114/76; PULSE 74; RESP 16; TEMP 36.7; O2SAT 99; BMI 26.9
--- OUTSIDE RECORDS SUMMARY | 2024-11-24 14:04 | XMS_ITS | Clinical Summary ---
Author Organization [facility] Address [address] [place] [address] Care Team Providers Care Cut Out Marker Name Role Phone Sugar Salinas FLAKE CUTTER OPERATOR Unavailable [phone] Social History Tobacco Use Types Packs/Day Years Used Date Smoking Tobacco: Never Assessed Sex and Gender Information Value Date Recorded Sex Assigned at Not on file Legal Sex Male 11:31 AM EDT Gender Identity Not on file Sexual Orientation Not on file Plan of Treatment Health Maintenance Due Date Last Done Comments Hepatitis C Virus Screening 1986 HIV Screening 11/26/1999 DTaP/Tdap/Td Vaccines (1 - Tdap) 2005 Hepatitis B Vaccines (1 of 3 - 19+ 3-dose series) 2005 HPV Vaccines (1 - 3-dose SCD M series) 2013 COVID-19 Vaccine ( - 2023-2 5 season) 2024 Pneumococcal Vaccine: Pediat dany (0-5 Years) and At-Risk Patients (6 to 49 Years) Aged Out No longer eligible b ased on patient's age to complete this topic Care Teams Cut Out Marker Relationship Specialty Start Date End Date Sugar Salinas APRN [address] [place], [place] [id number] Nurse Practitioner Psychiatry, General 06/06/24
== END 2024-11-24 13:44 | disposition home or self-care (01) ==
LOC: HO.HMCFM 12:29
PROVIDERS: PCP Nurse Practitioner Family; Visit Provider Nurse Practitioner Family
DX: L02.212 Cutaneous abscess of back [any part, except buttock and flank] (principal); Z00.00 Encounter for general adult medical examination without abnormal findings

== ENCOUNTER 2024-11-24 12:28 | Outpatient (REF) | payer BC, SELFPAY | END 2024-11-24 12:29 | disposition home or self-care (01) | LOC: HO.LAB 12:28 | PROVIDERS: PCP Nurse Practitioner Family; Visit Provider Nurse Practitioner Family | DX: L02.212 Cutaneous abscess of back [any part, except buttock and flank] (principal); Z00.00 Encounter for general adult medical examination without abnormal findings | CPT/HCPCS: 87070; 87205; 96127 ==